=== PATIENT | male | born 1945 | race Caucasian/White ===

== ENCOUNTER 2018-06-01 14:12 | Inpatient (IN) | payer MEDICARE, OTHER ==
[~2018-06-01] VITALS: Ht 188 cm; Wt 154.0 kg
--- NOTE | 2018-06-01 14:35 | NUR ---
PER EMS REPORT, PT REPORTS RIGHT HAND NUMBNESS. PER EMS, ON SCENE PT HAD SPO2 READING 10-20 POINTS LOWER ON RIGHT HAND WITH RIGHT HAND COOLNESS NOTED. THESE ASSESSMENT FINDINGS WERE NOT NOTED BY THIS RN. EDMD OVIDIO NOTIFIED THAT PT HAS HX TIA AND HAS RIGHT HAND NUMBNESS STARTING APPROX 1 HR PRIOR TO ARRIVAL. PT HAS EQUAL MANGLE FEEDER STRENGTH BILATERALLY, NO DRIFT, EQUAL STRENGTH TO BILATERAL ARMS AND LEGS. FACE SYMMETRICAL, PUPILS EQUAL ROUND AND REACTIVE, TONGUE MIDLINE. PT A&O X 4. MD TO EXAMINE PT.
--- NOTE | 2018-06-01 14:41 | NUR ---
KARUNA. REPORT RECEIVED BY EMS. PT HAS RIGHT HAND NUMBNESS, TIGLING AND WEAKNESS ABOUT 1.5 HOUR AGO. PT AOX4. SPEECH CLEAR. NEURO INTACT. 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 PT HAS HX OF TIA AND PULMONARY HTN. PT USING 5-6L OXY AT HOME AND STATES HE HAS CHRONIC SOB WITH EXERTION, PT STATES, "IT'S BEEN GETTING WORSE." PT USING OXY MASK AT 12L/MIN AT THIS TIME. RESPS EVEN AND UNLABORED. ALL MONITORS IN PLACE. JOVANNI NOLAN AT BEDSIDE TO ASSESS.
--- NOTE | 2018-06-01 14:45 | NUR ---
CODE NEURO CALLED PER JOVANNI NOLAN.
[2018-06-01] MEDS ORDERED: TERA10CA3 PO (14:46)
--- NOTE | 2018-06-01 14:46 | NUR ---
CODE NEURO CALLED 1 MIN AGO.
--- NOTE | 2018-06-01 14:56 | NUR ---
PT TO CT , FSBS 122
[2018-06-01] MEDS ORDERED: SODIUM CHLORIDE FLUSH 10ML SYR IVF ONE (15:00)
--- NOTE | 2018-06-01 15:18 | NUR ---
PT BACK TO ROOM FROM CT.
--- NOTE | 2018-06-01 15:24 | NUR ---
NEURO CONSULT COMPLETE. AWAITING RECOMMENDATION AT THIS TIME.
[2018-06-01] MEDS ORDERED: OMNIPAQUE 350 MG/ML, 100ML BOTTLE ONE (15:26)
[2018-06-01] MEDS ORDERED: LEVO25TA4 PO (15:29)
[2018-06-01] MEDS ORDERED: METO25TA35 PO (15:29)
--- NOTE | 2018-06-01 15:39 | NUR ---
per EDMD Cast, neuro consult does not recommend TPA. Pt's spo2 91-91% on 12L oxymask. Resps 20-25. EDMD aware.
[2018-06-01 15:52] LABS: BASOPHILS # (AUTO) 0.04 x10^3/uL (0-0.1); BASOPHILS % (AUTO) 1 % (0-1); EOSINOPHILS # (AUTO) 0.01 x10^3/uL (0-0.4); EOSINOPHILS % (AUTO) 0 % (1-7); LYMPHOCYTES # (AUTO) 0.71 x10^3/uL (1-3.4); LYMPHOCYTES % (AUTO) 9 % (22-44); MD NO; MEAN CORPUSCULAR HEMOGLOBIN 29.6 pg (27.5-34.5); MEAN CORPUSCULAR VOLUME 89.8 fL (81-97); MEAN PLATELET VOLUME 8.4 fL (7.4-10.4); MONOCYTES # (AUTO) 0.48 x10^3/uL (0.2-0.8); MONOCYTES % (AUTO) 6 % (2-9); NEUTROPHILS % (AUTO) 84 % (42-75); PLATELET COUNT 206 x10^3/uL (130-400); RED BLOOD COUNT 4.26 x10^6/uL (4.38-5.82); RED CELL DISTRIBUTION WIDTH 14.3 % (9.4-14.8)
--- NOTE | 2018-06-01 15:58 | NUR ---
x-ray at bed side. dysphagia scleen complete. pt coughs after drinking water. will continue to monitor.
[2018-06-01 16:00] LABS: ALBUMIN 2.6 g/dL (3.4-5.0); ANION GAP 9 mmol/L (5-15); CALCIUM 8.7 mg/dL (8.5-10.1); CHLORIDE 105 mmol/L (98-107)
--- NOTE | 2018-06-01 16:03 | NUR ---
edmd notified about dysphagia scleen. npo maintained at ed at this time.
[2018-06-01 16:06] LABS: ALANINE AMINOTRANSFERASE 14 U/L (12-78); ALKALINE PHOSPHATASE 86 U/L (45-117); BILIRUBIN,TOTAL 1.1 mg/dL (0.2-1.0); CREATININE 1.49 mg/dL (0.7-1.3); TOTAL PROTEIN 6.8 g/dL (6.4-8.2)
[2018-06-01 16:11] LABS: TROPONIN I 0.539 ng/mL (0.000-0.045)
--- NOTE | 2018-06-01 16:15 | NUR ---
PT'S RESULTS DISCUSSED WITH MD NOLAN INCUDING TROPONIN LEVEL .539 AND PE'S NOTED ON CTA.
--- NOTE | 2018-06-01 16:34 | NUR ---
HOSPITALIST DINORAH AT BEDSIDE TO EVALUATE PT. PT A&OX 4, RESPS EVEN AND UNLABORED, DENIES PAIN. 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 MD COPELAND NOTIFIED PT FAILED SWALLOW EVAL. NPO STATUS MAINTAINED. PT TO RECEIVE HEPARIN GTT.
--- NOTE | 2018-06-01 16:40 | NUR ---
pharmacy paged to verify heparin gtt. this RN confirmed by MD Payne that pt is to receive NON-STROKE heparin protocol for PE.
[2018-06-01 16:59] LABS: INTERNATIONAL NORMALIZED RATIO 1.19 (0.93-1.1); PROTHROMBIN TIME 12.5 Seconds (9.6-11.5)
[2018-06-01] MEDS ORDERED: hydrALAzine 20 MG/ML, 1ML IVPush PRN (17:00)
[2018-06-01] MEDS ORDERED: LABETALOL 5MG/ML, 20ML IVPush PRN (17:00)
[2018-06-01] MEDS ORDERED: ONDANSETRON ODT 4 MG PO PRN (17:00)
[2018-06-01] MEDS ORDERED: BISACODYL 10 MG SUPP PR PRN (17:00)
[2018-06-01] MEDS ORDERED: morphine SULFATE 10 MG/ML, 1ML IVPush PRN (17:00)
[2018-06-01] MEDS ORDERED: ONDANSETRON 2MG/ML, 2ML IVPush PRN (17:00)
[2018-06-01] MEDS ORDERED: HEPARIN 5,000 UNITS/ML, 1ML IV ONE (17:00)
[2018-06-01] MEDS ORDERED: OXYcodone IR 5MG TABLET PO PRN (17:00)
[2018-06-01] MEDS ORDERED: OXYcodone/APAP 5/325MG TABLET PO PRN (17:00)
[2018-06-01] MEDS ORDERED: PROMETHAZINE 25 MG/ML, 1ML IM PRN (17:00)
--- NOTE | 2018-06-01 17:00 | NUR ---
US tech at BS for echo
--- NOTE | 2018-06-01 17:22 | NUR ---
PT RESTING IN RDERRY. PT AOX4. RESPS EVEN AND UNLABORED. DENIES ANY PAIN, NEEDS AND CONCERNS AT THIS TIME.
[2018-06-01] MEDS ORDERED: HEPARIN 5,000 UNITS/ML, 1ML ONE (17:24)
[2018-06-01] MEDS ORDERED: HEPARIN 25,000 UNITS/500ML PMX 500 ML ONE (17:24)
[2018-06-01 17:28] LABS: FREE T4 (FREE THYROXINE) 1.34 ng/dL (0.76-1.46); THYROID STIMULATING HORMONE 2.7 mIU/L (0.358-3.740)
[2018-06-01 17:34] LABS: HEMOGLOBIN A1C 5.3 % (4.2-6.3)
--- NOTE | 2018-06-01 17:40 | NUR ---
this RN paged pharmacy to notify heparin gtt was dosed off of estimated weight. pt is well above max weight on heparin protocol. pharmacist Starr shya RN to admin heparin at ordered dose based off of estimated weight.
[2018-06-01] MEDS: HEPARIN 25,000 UNITS/500ML PMX 500 ML IV PRN (17:43)
--- NOTE | 2018-06-01 17:45 | NUR ---
pt resting in [facility]. pt aox4. resps even and unlabored. all monitors in place. call light within reach. pt provided warm blanket at this time. pt medicated per emar. pt orlerated well. denies any pain and needs at this time.
--- NOTE | 2018-06-01 18:29 | NUR ---
sbar report called to receiving MIKE Cruz. Recieving RN aware of heparin gtt and rate. pt awaiting transport to [facility].
[2018-06-01 20:00] VITALS: BP 123/79
[2018-06-01 21:34] LABS: TROPONIN I 0.899 ng/mL (0.000-0.045)
[2018-06-01] MEDS ORDERED: OMEP40CA6 PO (22:22)
[2018-06-01 22:32] VITALS: BP 123/79
[2018-06-02] MEDS: HEPARIN 5,000 UNITS/ML, 1ML IV PRN ×3 (00:13→19:05)
[2018-06-02 00:29] VITALS: BP 129/74
[2018-06-02 03:08] LABS: BASOPHILS # (AUTO) 0.01 x10^3/uL (0-0.1); BASOPHILS % (AUTO) 0 % (0-1); EOSINOPHILS # (AUTO) 0.07 x10^3/uL (0-0.4); EOSINOPHILS % (AUTO) 1 % (1-7); LYMPHOCYTES # (AUTO) 1.51 x10^3/uL (1-3.4); LYMPHOCYTES % (AUTO) 21 % (22-44); MD NO; MEAN CORPUSCULAR HEMOGLOBIN 29.9 pg (27.5-34.5); MEAN CORPUSCULAR HGB CONC 33.9 g/dL (33.2-36.2); MEAN CORPUSCULAR VOLUME 88.3 fL (81-97); MEAN PLATELET VOLUME 8.4 fL (7.4-10.4); MONOCYTES % (AUTO) 7 % (2-9); NEUTROPHILS # (AUTO) 5.27 x10^3/uL (1.8-6.8); NEUTROPHILS % (AUTO) 72 % (42-75); PLATELET COUNT 199 x10^3/uL (130-400); RED BLOOD COUNT 4.07 x10^6/uL (4.38-5.82); RED CELL DISTRIBUTION WIDTH 13.9 % (9.4-14.8)
[2018-06-02 03:18] LABS: ALBUMIN 2.6 g/dL (3.4-5.0); ANION GAP 7 mmol/L (5-15); CHLORIDE 108 mmol/L (98-107)
[2018-06-02 03:24] LABS: ALANINE AMINOTRANSFERASE 15 U/L (12-78); ALKALINE PHOSPHATASE 86 U/L (45-117); CHOL/HDL RATIO 2.1; CHOLESTEROL, TOTAL 70 mg/dL (140-239); CREATININE 1.32 mg/dL (0.7-1.3); HDL CHOL % 49 % (26-37); HDL CHOLESTEROL (DIRECT) 34 mg/dL (40-60); LDL CHOLESTEROL,CALCULATED 16 mg/dL (54-169); LDL/HDL RATIO 0.5 (0.5-3.0); TOTAL PROTEIN 6.7 g/dL (6.4-8.2); TRIGLYCERIDES 98 mg/dL (50-200); TROPONIN I 0.939 ng/mL (0.000-0.045); VLDL CHOLESTEROL 20 mg/dL (0-25)
[2018-06-02 05:08] VITALS: BP 126/67
[2018-06-02] MEDS: METOPROLOL SUCCINATE 25 MG TAB.ER.24H PO SCH (05:09)
[2018-06-02 05:16] LABS: MICROSCOPIC INDICATED
[2018-06-02 05:25] LABS: CULTURE INDICATED? NO
[2018-06-02] MEDS: HEPARIN 25,000 UNITS/500ML PMX 500 ML IV PRN ×2 (07:26→23:12)
[2018-06-02 07:37] VITALS: BP 114/71
[2018-06-02] MEDS: LEVOTHYROXINE 25 MCG TABLET PO SCH (10:29)
[2018-06-02] MEDS: TERAZOSIN 5MG CAPSULE PO SCH (10:30)
[2018-06-02 15:35] VITALS: BP 127/79
[2018-06-02 19:36] VITALS: BP 122/76
[2018-06-03 01:22] LABS: BASOPHILS # (AUTO) 0.13 x10^3/uL (0-0.1); BASOPHILS % (AUTO) 2 % (0-1); EOSINOPHILS # (AUTO) 0.22 x10^3/uL (0-0.4); EOSINOPHILS % (AUTO) 4 % (1-7); LYMPHOCYTES # (AUTO) 1.54 x10^3/uL (1-3.4); LYMPHOCYTES % (AUTO) 26 % (22-44); MD NO; MEAN CORPUSCULAR HEMOGLOBIN 30.1 pg (27.5-34.5); MEAN CORPUSCULAR HGB CONC 33.5 g/dL (33.2-36.2); MEAN CORPUSCULAR VOLUME 89.9 fL (81-97); MEAN PLATELET VOLUME 8.4 fL (7.4-10.4); MONOCYTES # (AUTO) 0.43 x10^3/uL (0.2-0.8); MONOCYTES % (AUTO) 7 % (2-9); NEUTROPHILS # (AUTO) 3.66 x10^3/uL (1.8-6.8); NEUTROPHILS % (AUTO) 61 % (42-75); PLATELET COUNT 211 x10^3/uL (130-400); RED BLOOD COUNT 4.02 x10^6/uL (4.38-5.82); RED CELL DISTRIBUTION WIDTH 14.5 % (9.4-14.8)
[2018-06-03 01:33] LABS: ALBUMIN 2.4 g/dL (3.4-5.0); ANION GAP 7 mmol/L (5-15); CALCIUM 8.1 mg/dL (8.5-10.1); CHLORIDE 106 mmol/L (98-107)
[2018-06-03 01:36] LABS: ALANINE AMINOTRANSFERASE 19 U/L (12-78); ALKALINE PHOSPHATASE 87 U/L (45-117); CREATININE 1.41 mg/dL (0.7-1.3); TOTAL PROTEIN 6.2 g/dL (6.4-8.2)
[2018-06-03 03:29] VITALS: BP 104/80
[2018-06-03 05:58] VITALS: BP 147/80
[2018-06-03] MEDS: LEVOTHYROXINE 25 MCG TABLET PO SCH (06:00)
[2018-06-03] MEDS: METOPROLOL SUCCINATE 25 MG TAB.ER.24H PO SCH (06:01)
[2018-06-03] MEDS ORDERED: POTASSIUM CHLORIDE 20 MEQ TAB.ER.PRT PO ONE (08:00)
[2018-06-03 08:01] VITALS: BP 118/80
[2018-06-03 08:29] LABS: TROPONIN I 0.413 ng/mL (0.000-0.045)
[2018-06-03] MEDS: HEPARIN 5,000 UNITS/ML, 1ML IV PRN ×2 (09:49→16:23)
[2018-06-03] MEDS: DOCUSATE 100 MG CAPSULE PO PRN ×2 (09:49→20:00)
[2018-06-03] MEDS: TERAZOSIN 5MG CAPSULE PO SCH (09:50)
[2018-06-03] MEDS: HEPARIN 25,000 UNITS/500ML PMX 500 ML IV PRN (13:30)
[2018-06-03 16:25] VITALS: BP 134/85
[2018-06-03] MEDS ORDERED: PHARMACY MAY ADJ FOR RENAL FX MC PRN (17:00)
[2018-06-03] MEDS: APIXABAN 5 MG TABLET PO SCH (20:00)
[2018-06-03 20:53] VITALS: BP 118/75
[2018-06-04] MEDS: CALCIUM CARBONATE 500 MG TAB.CHEW PO PRN ×2 (01:00→09:15)
[2018-06-04 01:49] VITALS: BP 122/78
[2018-06-04] MEDS: LEVOTHYROXINE 25 MCG TABLET PO SCH (04:44)
[2018-06-04] MEDS: POLYETHYLENE GLYCOL 17 GM PACKET PO PRN (04:44)
[2018-06-04] MEDS: METOPROLOL SUCCINATE 25 MG TAB.ER.24H PO SCH (04:47)
[2018-06-04 05:00] VITALS: BP 119/76
[2018-06-04 06:01] LABS: BASOPHILS # (AUTO) 0.03 x10^3/uL (0-0.1); BASOPHILS % (AUTO) 1 % (0-1); EOSINOPHILS # (AUTO) 0.16 x10^3/uL (0-0.4); EOSINOPHILS % (AUTO) 3 % (1-7); LYMPHOCYTES % (AUTO) 25 % (22-44); MD NO; MEAN CORPUSCULAR HEMOGLOBIN 29.9 pg (27.5-34.5); MEAN CORPUSCULAR VOLUME 90.4 fL (81-97); MEAN PLATELET VOLUME 8.7 fL (7.4-10.4); MONOCYTES # (AUTO) 0.38 x10^3/uL (0.2-0.8); MONOCYTES % (AUTO) 7 % (2-9); NEUTROPHILS # (AUTO) 3.29 x10^3/uL (1.8-6.8); NEUTROPHILS % (AUTO) 64 % (42-75); PLATELET COUNT 213 x10^3/uL (130-400); RED BLOOD COUNT 3.97 x10^6/uL (4.38-5.82); RED CELL DISTRIBUTION WIDTH 14.1 % (9.4-14.8)
[2018-06-04 06:13] LABS: CHLORIDE 105 mmol/L (98-107)
[2018-06-04 06:24] LABS: ALANINE AMINOTRANSFERASE 18 U/L (12-78); ALBUMIN 2.4 g/dL (3.4-5.0); ALKALINE PHOSPHATASE 94 U/L (45-117); ANION GAP 8 mmol/L (5-15); BILIRUBIN,TOTAL 0.6 mg/dL (0.2-1.0); CALCIUM 8.2 mg/dL (8.5-10.1); CREATININE 1.12 mg/dL (0.7-1.3); TOTAL PROTEIN 6.6 g/dL (6.4-8.2)
[2018-06-04 07:29] VITALS: BP 119/76
[2018-06-04] MEDS: TERAZOSIN 5MG CAPSULE PO SCH (09:15)
[2018-06-04] MEDS: OMEPRAZOLE 20 MG CAPSULE.DR PO SCH (09:15)
[2018-06-04] MEDS: APIXABAN 5 MG TABLET PO SCH ×2 (09:16→20:33)
[2018-06-04 12:32] VITALS: BP 135/70
[2018-06-04 20:00] VITALS: BP 94/54
[2018-06-04 22:32] VITALS: BP 119/78
[2018-06-05 01:22] VITALS: BP 97/66
[2018-06-05 05:09] LABS: BASOPHILS # (AUTO) 0.03 x10^3/uL (0-0.1); BASOPHILS % (AUTO) 1 % (0-1); EOSINOPHILS # (AUTO) 0.14 x10^3/uL (0-0.4); EOSINOPHILS % (AUTO) 3 % (1-7); LYMPHOCYTES # (AUTO) 1.13 x10^3/uL (1-3.4); LYMPHOCYTES % (AUTO) 23 % (22-44); MD NO; MEAN CORPUSCULAR HEMOGLOBIN 29.9 pg (27.5-34.5); MEAN CORPUSCULAR HGB CONC 33.1 g/dL (33.2-36.2); MEAN CORPUSCULAR VOLUME 90.3 fL (81-97); MEAN PLATELET VOLUME 8.8 fL (7.4-10.4); MONOCYTES # (AUTO) 0.35 x10^3/uL (0.2-0.8); MONOCYTES % (AUTO) 7 % (2-9); NEUTROPHILS # (AUTO) 3.35 x10^3/uL (1.8-6.8); NEUTROPHILS % (AUTO) 67 % (42-75); PLATELET COUNT 216 x10^3/uL (130-400); RED BLOOD COUNT 3.74 x10^6/uL (4.38-5.82); RED CELL DISTRIBUTION WIDTH 14.1 % (9.4-14.8)
[2018-06-05 05:17] LABS: ALBUMIN 2.3 g/dL (3.4-5.0); ANION GAP 6 mmol/L (5-15); CALCIUM 7.9 mg/dL (8.5-10.1); CHLORIDE 105 mmol/L (98-107)
[2018-06-05 05:20] LABS: ALANINE AMINOTRANSFERASE 20 U/L (12-78); ALKALINE PHOSPHATASE 92 U/L (45-117); BILIRUBIN,TOTAL 0.6 mg/dL (0.2-1.0); CREATININE 1.17 mg/dL (0.7-1.3); TOTAL PROTEIN 6.4 g/dL (6.4-8.2)
[2018-06-05] MEDS: LEVOTHYROXINE 25 MCG TABLET PO SCH (05:33)
[2018-06-05] MEDS: OMEPRAZOLE 20 MG CAPSULE.DR PO SCH (05:34)
[2018-06-05] MEDS: METOPROLOL SUCCINATE 25 MG TAB.ER.24H PO SCH (05:34)
[2018-06-05 06:50] VITALS: BP 120/81
[2018-06-05] MEDS: TERAZOSIN 5MG CAPSULE PO SCH (09:22)
[2018-06-05] MEDS: APIXABAN 5 MG TABLET PO SCH ×2 (09:22→20:24)
[2018-06-05 14:12] VITALS: BP 123/77
[2018-06-05 19:20] VITALS: BP 119/74
[2018-06-06 01:06] VITALS: BP 121/73
[2018-06-06] MEDS: OMEPRAZOLE 20 MG CAPSULE.DR PO SCH (05:16)
[2018-06-06] MEDS: METOPROLOL SUCCINATE 25 MG TAB.ER.24H PO SCH (05:16)
[2018-06-06] MEDS: LEVOTHYROXINE 25 MCG TABLET PO SCH (05:16)
[2018-06-06 07:14] VITALS: BP 121/60
[2018-06-06 08:14] LABS: BASOPHILS % (AUTO) 0 % (0-1); EOSINOPHILS # (AUTO) 0.14 x10^3/uL (0-0.4); EOSINOPHILS % (AUTO) 3 % (1-7); LYMPHOCYTES # (AUTO) 0.89 x10^3/uL (1-3.4); LYMPHOCYTES % (AUTO) 16 % (22-44); MD NO; MEAN CORPUSCULAR HEMOGLOBIN 29.2 pg (27.5-34.5); MEAN CORPUSCULAR HGB CONC 32.5 g/dL (33.2-36.2); MONOCYTES # (AUTO) 0.39 x10^3/uL (0.2-0.8); MONOCYTES % (AUTO) 7 % (2-9); NEUTROPHILS # (AUTO) 4.16 x10^3/uL (1.8-6.8); NEUTROPHILS % (AUTO) 74 % (42-75); PLATELET COUNT 238 x10^3/uL (130-400); RED BLOOD COUNT 4.04 x10^6/uL (4.38-5.82)
[2018-06-06 08:23] LABS: ALANINE AMINOTRANSFERASE 22 U/L (12-78); ALBUMIN 2.5 g/dL (3.4-5.0); ANION GAP 4 mmol/L (5-15); CALCIUM 8.5 mg/dL (8.5-10.1); CHLORIDE 106 mmol/L (98-107)
[2018-06-06 08:25] LABS: ALKALINE PHOSPHATASE 108 U/L (45-117); BILIRUBIN,TOTAL 0.5 mg/dL (0.2-1.0); CREATININE 1.15 mg/dL (0.7-1.3); TOTAL PROTEIN 6.7 g/dL (6.4-8.2)
[2018-06-06] MEDS: POLYETHYLENE GLYCOL 17 GM PACKET PO PRN (09:12)
[2018-06-06] MEDS: TERAZOSIN 5MG CAPSULE PO SCH (09:12)
[2018-06-06] MEDS: APIXABAN 5 MG TABLET PO SCH ×2 (09:12→19:56)
[2018-06-06 20:00] VITALS: BP 139/79
[2018-06-07 02:00] VITALS: BP 122/68
[2018-06-07] MEDS: LEVOTHYROXINE 25 MCG TABLET PO SCH (05:30)
[2018-06-07] MEDS: METOPROLOL SUCCINATE 25 MG TAB.ER.24H PO SCH (05:30)
[2018-06-07] MEDS: OMEPRAZOLE 20 MG CAPSULE.DR PO SCH (05:30)
[2018-06-07 06:20] LABS: ALBUMIN 2.4 g/dL (3.4-5.0); ANION GAP 5 mmol/L (5-15); CALCIUM 8.5 mg/dL (8.5-10.1); CHLORIDE 105 mmol/L (98-107)
[2018-06-07 06:22] LABS: CREATININE 1.15 mg/dL (0.7-1.3)
[2018-06-07 06:49] LABS: BASOPHILS # (AUTO) 0.02 x10^3/uL (0-0.1); BASOPHILS % (AUTO) 0 % (0-1); EOSINOPHILS % (AUTO) 4 % (1-7); LYMPHOCYTES # (AUTO) 1.04 x10^3/uL (1-3.4); LYMPHOCYTES % (AUTO) 19 % (22-44); MD NO; MEAN CORPUSCULAR HGB CONC 33.4 g/dL (33.2-36.2); MEAN CORPUSCULAR VOLUME 89.8 fL (81-97); MEAN PLATELET VOLUME 8.9 fL (7.4-10.4); MONOCYTES # (AUTO) 0.38 x10^3/uL (0.2-0.8); MONOCYTES % (AUTO) 7 % (2-9); NEUTROPHILS # (AUTO) 3.87 x10^3/uL (1.8-6.8); NEUTROPHILS % (AUTO) 70 % (42-75); PLATELET COUNT 242 x10^3/uL (130-400); RED BLOOD COUNT 3.87 x10^6/uL (4.38-5.82); RED CELL DISTRIBUTION WIDTH 14.1 % (9.4-14.8)
[2018-06-07 07:31] VITALS: BP 143/73
[2018-06-07] MEDS: TERAZOSIN 5MG CAPSULE PO SCH (08:48)
[2018-06-07] MEDS: APIXABAN 5 MG TABLET PO SCH ×2 (08:49→21:49)
[2018-06-07 14:00] VITALS: BP 135/71
[2018-06-07 19:23] VITALS: BP 127/84
[2018-06-08 00:10] VITALS: BP 109/71
[2018-06-08] MEDS: POLYETHYLENE GLYCOL 17 GM PACKET PO PRN (00:10)
[2018-06-08 05:23] LABS: ALBUMIN 2.4 g/dL (3.4-5.0); ANION GAP 4 mmol/L (5-15); CALCIUM 7.9 mg/dL (8.5-10.1); CHLORIDE 104 mmol/L (98-107); CREATININE 1.04 mg/dL (0.7-1.3)
[2018-06-08 05:25] LABS: BASOPHILS # (AUTO) 0.03 x10^3/uL (0-0.1); BASOPHILS % (AUTO) 1 % (0-1); EOSINOPHILS # (AUTO) 0.21 x10^3/uL (0-0.4); EOSINOPHILS % (AUTO) 4 % (1-7); LYMPHOCYTES # (AUTO) 0.94 x10^3/uL (1-3.4); LYMPHOCYTES % (AUTO) 19 % (22-44); MD NO; MEAN CORPUSCULAR HEMOGLOBIN 29.4 pg (27.5-34.5); MEAN CORPUSCULAR HGB CONC 32.5 g/dL (33.2-36.2); MEAN CORPUSCULAR VOLUME 90.3 fL (81-97); MEAN PLATELET VOLUME 8.2 fL (7.4-10.4); MONOCYTES # (AUTO) 0.39 x10^3/uL (0.2-0.8); MONOCYTES % (AUTO) 8 % (2-9); NEUTROPHILS # (AUTO) 3.47 x10^3/uL (1.8-6.8); NEUTROPHILS % (AUTO) 69 % (42-75); PLATELET COUNT 244 x10^3/uL (130-400); RED CELL DISTRIBUTION WIDTH 14.1 % (9.4-14.8)
[2018-06-08] MEDS: LEVOTHYROXINE 25 MCG TABLET PO SCH (05:39)
[2018-06-08] MEDS: METOPROLOL SUCCINATE 25 MG TAB.ER.24H PO SCH (05:40)
[2018-06-08] MEDS: OMEPRAZOLE 20 MG CAPSULE.DR PO SCH (05:40)
[2018-06-08 07:27] VITALS: BP 116/74
[2018-06-08] MEDS: TERAZOSIN 5MG CAPSULE PO SCH (09:52)
[2018-06-08] MEDS: APIXABAN 5 MG TABLET PO SCH ×2 (09:52→20:45)
[2018-06-08] MEDS ORDERED: METO25TA91 PO (11:41)
[2018-06-08] MEDS ORDERED: APIX5TAB PO (11:41)
[2018-06-08] MEDS ORDERED: OMEP-110 PO (11:41)
[2018-06-08 12:11] VITALS: BP 124/74
[2018-06-08 19:33] VITALS: BP 116/74
[2018-06-08] MEDS: DIPHENHYDRAMINE 25 MG CAPSULE PO PRN (21:52)
[2018-06-09 02:00] VITALS: BP 134/80
[2018-06-09] MEDS: LEVOTHYROXINE 25 MCG TABLET PO SCH (05:50)
[2018-06-09] MEDS: OMEPRAZOLE 20 MG CAPSULE.DR PO SCH (05:53)
[2018-06-09] MEDS: METOPROLOL SUCCINATE 25 MG TAB.ER.24H PO SCH (05:53)
[2018-06-09 06:35] VITALS: BP 126/84
[2018-06-09] MEDS: APIXABAN 5 MG TABLET PO SCH ×2 (08:44→20:19)
[2018-06-09] MEDS: TERAZOSIN 5MG CAPSULE PO SCH (08:44)
[2018-06-09 13:32] VITALS: BP 124/73
[2018-06-09 19:04] VITALS: BP 118/72
[2018-06-10 01:05] VITALS: BP 128/73
[2018-06-10] MEDS: DIPHENHYDRAMINE 25 MG CAPSULE PO PRN (01:10)
[2018-06-10 02:34] VITALS: BP 128/72
[2018-06-10 03:40] VITALS: BP 134/77
[2018-06-10] MEDS ORDERED: GLUCAGON 1 MG IM PRN (05:00)
[2018-06-10] MEDS: LEVOTHYROXINE 25 MCG TABLET PO SCH (05:11)
[2018-06-10] MEDS: OMEPRAZOLE 20 MG CAPSULE.DR PO SCH (05:11)
[2018-06-10 05:53] LABS: BASOPHILS # (AUTO) 0.05 x10^3/uL (0-0.1); BASOPHILS % (AUTO) 1 % (0-1); EOSINOPHILS # (AUTO) 0.24 x10^3/uL (0-0.4); EOSINOPHILS % (AUTO) 4 % (1-7); LYMPHOCYTES # (AUTO) 1.29 x10^3/uL (1-3.4); LYMPHOCYTES % (AUTO) 21 % (22-44); MD NO; MEAN CORPUSCULAR HEMOGLOBIN 29.7 pg (27.5-34.5); MEAN CORPUSCULAR HGB CONC 33.1 g/dL (33.2-36.2); MEAN CORPUSCULAR VOLUME 89.8 fL (81-97); MEAN PLATELET VOLUME 8.4 fL (7.4-10.4); MONOCYTES # (AUTO) 0.42 x10^3/uL (0.2-0.8); MONOCYTES % (AUTO) 7 % (2-9); NEUTROPHILS # (AUTO) 4.25 x10^3/uL (1.8-6.8); NEUTROPHILS % (AUTO) 68 % (42-75); PLATELET COUNT 288 x10^3/uL (130-400); RED BLOOD COUNT 3.98 x10^6/uL (4.38-5.82); RED CELL DISTRIBUTION WIDTH 14.3 % (9.4-14.8)
[2018-06-10 05:58] LABS: CHLORIDE 104 mmol/L (98-107)
[2018-06-10 06:03] LABS: ALBUMIN 2.3 g/dL (3.4-5.0); ANION GAP 7 mmol/L (5-15); CALCIUM 8.6 mg/dL (8.5-10.1); CREATININE 0.89 mg/dL (0.7-1.3)
[2018-06-10 06:58] VITALS: BP 115/74
[2018-06-10] MEDS: TERAZOSIN 5MG CAPSULE PO SCH (09:08)
[2018-06-10] MEDS: APIXABAN 5 MG TABLET PO SCH ×2 (09:11→19:57)
[2018-06-10 12:40] VITALS: BP 117/71
[2018-06-10 20:49] VITALS: BP 137/72
[2018-06-11 01:39] VITALS: BP 140/75
[2018-06-11] MEDS: LEVOTHYROXINE 25 MCG TABLET PO SCH (05:27)
[2018-06-11] MEDS: OMEPRAZOLE 20 MG CAPSULE.DR PO SCH (05:27)
[2018-06-11 06:57] VITALS: BP 112/69
[2018-06-11] MEDS: APIXABAN 5 MG TABLET PO SCH ×2 (09:25→20:11)
[2018-06-11] MEDS: TERAZOSIN 5MG CAPSULE PO SCH (09:26)
[2018-06-11] MEDS: ACETAMINOPHEN 325 MG TABLET PO PRN ×2 (09:31→20:11)
[2018-06-11 12:38] VITALS: BP 115/81
[2018-06-11 18:58] VITALS: BP 124/76
[2018-06-12 02:00] VITALS: BP 135/78
[2018-06-12] MEDS: ACETAMINOPHEN 325 MG TABLET PO PRN ×3 (02:06→15:58)
[2018-06-12] MEDS: OMEPRAZOLE 20 MG CAPSULE.DR PO SCH (05:58)
[2018-06-12] MEDS: LEVOTHYROXINE 25 MCG TABLET PO SCH (05:58)
[2018-06-12 07:11] VITALS: BP 130/72
[2018-06-12] MEDS: APIXABAN 5 MG TABLET PO SCH ×2 (08:49→21:31)
[2018-06-12] MEDS: TERAZOSIN 5MG CAPSULE PO SCH (08:49)
[2018-06-12 13:39] VITALS: BP 138/78
[2018-06-12] MEDS ORDERED: methylPREDNISolone 4mg DOSE PACK PO SCH (17:00)
[2018-06-12] MEDS ORDERED: methylPREDNISolone 4mg DOSE PACK ONE (17:14)
[2018-06-12 20:00] VITALS: BP 136/76
[2018-06-13 01:31] VITALS: BP 101/73
[2018-06-13 04:54] LABS: MEAN CORPUSCULAR HEMOGLOBIN 29.5 pg (27.5-34.5); MEAN CORPUSCULAR HGB CONC 32.9 g/dL (33.2-36.2); MEAN CORPUSCULAR VOLUME 89.5 fL (81-97); MEAN PLATELET VOLUME 7.7 fL (7.4-10.4); PLATELET COUNT 322 x10^3/uL (130-400); RED BLOOD COUNT 4.32 x10^6/uL (4.38-5.82); RED CELL DISTRIBUTION WIDTH 13.6 % (9.4-14.8)
[2018-06-13 05:03] LABS: ANION GAP 3 mmol/L (5-15); CALCIUM 8.7 mg/dL (8.5-10.1); CHLORIDE 102 mmol/L (98-107)
[2018-06-13 05:07] LABS: BASOPHILS % (AUTO) 0 % (0-1); EOSINOPHILS % (AUTO) 0 % (1-7); LYMPHOCYTES # (AUTO) 0.33 x10^3/uL (1-3.4); LYMPHOCYTES % (AUTO) 4 % (22-44); MD SCAN; MONOCYTES # (AUTO) 0.04 x10^3/uL (0.2-0.8); MONOCYTES % (AUTO) 1 % (2-9); NEUTROPHILS # (AUTO) 7.66 x10^3/uL (1.8-6.8); NEUTROPHILS % (AUTO) 95 % (42-75)
[2018-06-13] MEDS: LEVOTHYROXINE 25 MCG TABLET PO SCH (05:36)
[2018-06-13] MEDS: OMEPRAZOLE 20 MG CAPSULE.DR PO SCH (05:36)
[2018-06-13 07:15] VITALS: BP 127/79
[2018-06-13] MEDS: TERAZOSIN 5MG CAPSULE PO SCH (07:57)
[2018-06-13] MEDS: APIXABAN 5 MG TABLET PO SCH ×2 (07:57→20:18)
[2018-06-13] MEDS: ACETAMINOPHEN 325 MG TABLET PO PRN ×2 (07:57→23:37)
[2018-06-13] MEDS ORDERED: METH4TAB2 PO (12:15)
[2018-06-13 12:32] VITALS: BP 101/66
[2018-06-13 19:00] VITALS: BP 118/71
[2018-06-14 02:23] VITALS: BP 131/74
[2018-06-14] MEDS: OMEPRAZOLE 20 MG CAPSULE.DR PO SCH (05:44)
[2018-06-14] MEDS: LEVOTHYROXINE 25 MCG TABLET PO SCH (05:44)
[2018-06-14 06:26] VITALS: BP 147/79
[2018-06-14] MEDS: ACETAMINOPHEN 325 MG TABLET PO PRN (06:34)
[2018-06-14] MEDS: TERAZOSIN 5MG CAPSULE PO SCH (09:29)
[2018-06-14] MEDS: APIXABAN 5 MG TABLET PO SCH ×2 (09:29→20:27)
[2018-06-14 12:40] VITALS: BP 132/75
[2018-06-14 19:27] VITALS: BP 146/76
[2018-06-15 00:25] VITALS: BP 128/73
[2018-06-15] MEDS: ACETAMINOPHEN 325 MG TABLET PO PRN (00:30)
[2018-06-15] MEDS: LEVOTHYROXINE 25 MCG TABLET PO SCH (06:21)
[2018-06-15] MEDS: OMEPRAZOLE 20 MG CAPSULE.DR PO SCH (06:22)
[2018-06-15 07:33] VITALS: BP 131/81
[2018-06-15] MEDS: TERAZOSIN 5MG CAPSULE PO SCH (08:57)
[2018-06-15] MEDS: APIXABAN 5 MG TABLET PO SCH (08:57)
[2018-06-15 12:52] VITALS: BP 118/73
== END 2018-06-15 15:33 | DRG 175 ==
LOC: ED 15:41 → EDIP 15:42 → ED 17:08 → 5SO 18:36 → 4WST 06-04 22:10 → 5SO 06-10 04:55
PROVIDERS: ADMIT Hospitalist; ATTEND Hospitalist
DX: I26.99 Other pulmonary embolism without acute cor pulmonale (principal); J96.21 Acute and chronic respiratory failure with hypoxia; E44.0 Moderate protein-calorie malnutrition; Z68.41 Body mass index [BMI] 40.0-44.9, adult; I31.3 Pericardial effusion (noninflammatory); G45.9 Transient cerebral ischemic attack, unspecified; Z88.8 Allergy status to other drugs, medicaments and biological substances; E03.9 Hypothyroidism, unspecified; E66.9 Obesity, unspecified; I27.20 Pulmonary hypertension, unspecified; I87.2 Venous insufficiency (chronic) (peripheral); I87.8 Other specified disorders of veins; M10.9 Gout, unspecified; N40.0 Benign prostatic hyperplasia without lower urinary tract symptoms; N50.89 Other specified disorders of the male genital organs; Z75.1 Person awaiting admission to adequate facility elsewhere; Z79.01 Long term (current) use of anticoagulants; Z90.49 Acquired absence of other specified parts of digestive tract; I51.9 Heart disease, unspecified; Z79.899 Other long term (current) drug therapy; R00.1 Bradycardia, unspecified
CPT/HCPCS: 36415; 70450; 70496; 70498; 71045; 80047; 80048; 80053; 80061; 81001; 82040; 82962; 83036; 83605; 83735; 84100; 84439; 84443; 84484; 84550; 85025; 85520; 85610; 85730; 87040; 90656; 93005; 93308; 93321; 93325; 93970; G0378; J1644; J7509; Q9967; Q0163

== ENCOUNTER 2018-07-10 08:42 | Emergency (ER) | payer MEDICARE ==
[~2018-07-10] VITALS: Ht 188 cm; Wt 154.4 kg
[~2018-07-10 08:42] MED LIST: APIX5TAB PO; LEVO25TA4 PO; METH4TAB2 PO; METO25TA35 PO; METO25TA91 PO; OMEP-110 PO; OMEP40CA6 PO; TERA10CA3 PO
[2018-07-10 09:29] LABS: BASOPHILS # (AUTO) 0.08 x10^3/uL (0-0.1); BASOPHILS % (AUTO) 1 % (0-1); EOSINOPHILS # (AUTO) 0.08 x10^3/uL (0-0.4); EOSINOPHILS % (AUTO) 1 % (1-7); LYMPHOCYTES # (AUTO) 1.21 x10^3/uL (1-3.4); LYMPHOCYTES % (AUTO) 19 % (22-44); MD NO; MEAN CORPUSCULAR HEMOGLOBIN 28.3 pg (27.5-34.5); MEAN CORPUSCULAR HGB CONC 32.5 g/dL (33.2-36.2); MEAN CORPUSCULAR VOLUME 87.1 fL (81-97); MEAN PLATELET VOLUME 7.4 fL (7.4-10.4); MONOCYTES # (AUTO) 0.34 x10^3/uL (0.2-0.8); MONOCYTES % (AUTO) 5 % (2-9); NEUTROPHILS # (AUTO) 4.81 x10^3/uL (1.8-6.8); NEUTROPHILS % (AUTO) 74 % (42-75); PLATELET COUNT 247 x10^3/uL (130-400); RED BLOOD COUNT 4.42 x10^6/uL (4.38-5.82); RED CELL DISTRIBUTION WIDTH 14.7 % (9.4-14.8)
[2018-07-10 09:41] LABS: ALANINE AMINOTRANSFERASE 26 U/L (12-78); ALBUMIN 2.4 g/dL (3.4-5.0); ANION GAP 4 mmol/L (5-15); CALCIUM 8.5 mg/dL (8.5-10.1); CHLORIDE 109 mmol/L (98-107); CREATININE 0.96 mg/dL (0.7-1.3)
[2018-07-10 09:43] LABS: INTERNATIONAL NORMALIZED RATIO 1.4 (0.93-1.1); PROTHROMBIN TIME 14.6 Seconds (9.6-11.5)
[2018-07-10 09:45] LABS: ALKALINE PHOSPHATASE 97 U/L (45-117); BILIRUBIN,TOTAL 0.4 mg/dL (0.2-1.0); TOTAL PROTEIN 6.3 g/dL (6.4-8.2); TROPONIN I 0.017 ng/mL (0.000-0.045)
[2018-07-10] MEDS ORDERED: OMNIPAQUE 350 MG/ML, 150 ML BOTTLE ONE (10:26)
--- NOTE | 2018-07-10 11:12 | NUR ---
Pt ambulates to restroom on 3L nasal cannula with steady gait and balance, SPO2% was between 85-91%. Pt states he felt more short of breath while ambulating.
--- NOTE | 2018-07-10 11:36 | NUR ---
LATE NOTE ENTRY FOR 0847: Pt brought in by EMS from [facility] with c/o shortness of breath. Pt wears 2-4 L oxygen via nasal cannula at home at all times. Pt had 20 g LAC PIV placed prior to arrival Pt has bilaterall pedal edema that the pt states, "is less than his normal." Pt states, "I have PEs. I have lost about 100 lbs in the last year with diet." Pt states, "I have been more short of breath when I get up and walk. It has been more than my normal." Pt ambulates with steady gait and balance. Pt denies chest pain, n/v/d, trauma, lightheadedness, or diaphoresis. All safety measures in place. Pt connected to all monitors and is on 3 L of oxygen via nasal cannula. Provided pt hospital gown and warm blankets for comfort measures.
[2018-07-10] MEDS ORDERED: WARF1TAB PO (12:16)
[2018-07-10 12:17] VITALS: BP 124/80
[2018-07-10] MEDS ORDERED: Metoprolol PO (12:19)
[2018-07-10] MEDS ORDERED: APIXABAN 5 MG TABLET PO ONE (12:30)
--- NOTE | 2018-07-10 13:00 | NUR ---
Pt ready to discharge home once friend brings home oxygen to ED for transportation.
--- NOTE | 2018-07-10 13:51 | NUR ---
Late note for 1345: Patient and Caregiver given discharge instructions and they have confirmed that they understand the instructions. Patient ambulatory with steady gait. Pt left with own home oxygen tank, all personal belongings, discharge paperwork, and all personal belongings.
== END 2018-07-10 13:54 | disposition home or self-care (01) ==
LOC: ED 09:06
DX: J96.11 Chronic respiratory failure with hypoxia (principal); I26.99 Other pulmonary embolism without acute cor pulmonale; Z86.73 Personal history of transient ischemic attack (TIA), and cerebral infarction without residual deficits
CPT/HCPCS: 36415; 71045; 71275; 80053; 83880; 84484; 85025; 85610; 85730; 93005; 99284; Q9967

== ENCOUNTER 2020-03-13 20:27 | Observation (INO) | payer MEDICARE ==
[~2020-03-13] VITALS: Ht 157.5 cm; Wt 194.5 kg
[~2020-03-13 20:27] MED LIST changes: +Metoprolol PO; +OMEP40CA42 PO; -OMEP40CA6 PO; +WARF1TAB2 PO
--- NOTE | 2020-03-13 20:54 | NUR ---
PT BIB [facility] FROM HOME AFTER WAKING UP FROM A NAP AND FEELING CONFUSED, STATES HE KNEW WHO HE WAS AND WHERE HE WAS BUT FELT CONFUSED. STATES HE WENT TO WATCH TV AND COULDNT REMEMBER HOW TO USE THE REMOTE. CALLED A FRIEND AND WAS TOLD TO CALL [facility]. PT WAS FOUND AT 200S/100S INITIALLY THEN DROPPED TO 130S/90S ENROUTE AFTER 250 NS. PT HAS HX OF PE AND TIA. PT ON ELIQUIS. PT HAS NO NOTED DEFICITS BY THIS RN, SUPERVISORY LIFEGUARD STRENGTHS EQUAL BILATERALLY. PERRLA, GROSS NEURO INTACT. WCCLARISA JUAREZ AT BS FOR EVAL AND POC. PT PALCED ON SPO2/BP/ECG MONITORING.
[2020-03-13] MEDS ORDERED: AMBIEN PO (21:03)
[2020-03-13] MEDS ORDERED: TAMS-11 PO (21:05)
[2020-03-13 21:15] LABS: BASOPHILS # (AUTO) 0.08 x10^3/uL (0-0.1); BASOPHILS % (AUTO) 1 % (0-1); EOSINOPHILS # (AUTO) 0.06 x10^3/uL (0-0.4); EOSINOPHILS % (AUTO) 1 % (1-7); LYMPHOCYTES # (AUTO) 1.38 x10^3/uL (1-3.4); LYMPHOCYTES % (AUTO) 22 % (22-44); MD NO; MEAN CORPUSCULAR HEMOGLOBIN 29.8 pg (27.5-34.5); MEAN CORPUSCULAR HGB CONC 33.2 g/dL (33.2-36.2); MEAN PLATELET VOLUME 7.8 fL (7.4-10.4); MONOCYTES # (AUTO) 0.33 x10^3/uL (0.2-0.8); MONOCYTES % (AUTO) 5 % (2-9); NEUTROPHILS # (AUTO) 4.53 x10^3/uL (1.8-6.8); NEUTROPHILS % (AUTO) 71 % (42-75); PLATELET COUNT 241 x10^3/uL (130-400); RED BLOOD COUNT 4.67 x10^6/uL (4.38-5.82); RED CELL DISTRIBUTION WIDTH 14.1 % (9.4-14.8)
[2020-03-13 21:25] LABS: ANION GAP 6 mmol/L (5-15); CALCIUM 8.5 mg/dL (8.5-10.1); CHLORIDE 109 mmol/L (98-107)
--- NOTE | 2020-03-13 21:30 | NUR ---
PT RESTING ON GUHAM, BACK FORM CT, NAD, DENIES ADDITIONAL NEEDS AT THIS TIME. FRIEND AT BS. WAITING FOR LABS/CT RESULTS. WCTM.
[2020-03-13 21:37] LABS: INTERNATIONAL NORMALIZED RATIO 1.04 (0.93-1.1); PROTHROMBIN TIME 10.7 Seconds (9.6-11.5)
--- NOTE | 2020-03-13 22:30 | NUR ---
LATE ENTRY D/T PT CARE: PT NAD, RESTING ON GURNEY, TO BE ADMITTED, NO CHANGE IN CONDITION, AMBULATED TO AND FROM RESTROOM WITH A SMOOTH AND STEADY GAIT. ANOx4, WCTM. WAITING FOR ADMIT BED
--- NOTE | 2020-03-13 23:13 | NUR ---
REPORT CALLED UP TO MAREN MCKEON, PT CARE TO BE TRANSFERRED UPON ARRIVAL TO THE FLOOR, NAD, DENIES ADDITIONAL NEEDS, NO CHANGE IN CONDITION, WCTM.
[2020-03-13 23:28] VITALS: BP 206/101
[2020-03-13] MEDS ORDERED: ACETAMINOPHEN 325 MG TABLET PO PRN (23:30)
[2020-03-13] MEDS ORDERED: DOCUSATE 100 MG CAPSULE PO PRN (23:30)
[2020-03-14] VITALS (11 sets, daily range): BP systolic 161–207; BP diastolic 78–104
[2020-03-14] MEDS: LABETALOL 5MG/ML, 20ML IVPush PRN ×2 (00:19→01:53)
[2020-03-14] MEDS ORDERED: APIXABAN 5 MG TABLET ONE (00:28)
[2020-03-14] MEDS: METOPROLOL MC SCH ×2 (00:30→08:30)
[2020-03-14] MEDS: APIXABAN 5 MG TABLET PO SCH ×2 (00:31→21:29)
[2020-03-14] MEDS: ENALAPRILAT 1.25 MG/ML, 2ML IVPush PRN ×2 (02:02→02:20)
[2020-03-14 04:21] LABS: CHOL/HDL RATIO 2.3; LDL/HDL RATIO 0.8 (0.5-3.0)
[2020-03-14] MEDS ORDERED: LISINOPRIL 10 MG TABLET PO SCH (09:00)
[2020-03-14] MEDS: TAMSULOSIN 0.4 MG CAP.ER.24H PO SCH (09:43)
[2020-03-14] MEDS: LABETALOL 100 MG TABLET PO SCH ×2 (09:44→18:45)
[2020-03-14] MEDS: ASPIRIN 81 MG TABLET CHEW PO/NG SCH (09:44)
[2020-03-14] MEDS ORDERED: METO25TA35 PO (09:46)
[2020-03-14] MEDS ORDERED: LEVO25TA4 PO (09:48)
[2020-03-14] MEDS ORDERED: LEVOTHYROXINE 25 MCG TABLET PO SCH (13:00)
[2020-03-14] MEDS: METOPROLOL TARTRATE 25 MG TAB PO SCH (16:37)
[2020-03-14] MEDS ORDERED: TEMAZEPAM 15 MG CAPSULE PO PRN (18:00)
[2020-03-14] MEDS ORDERED: ATORVASTATIN 40 MG TABLET PO SCH (21:00)
[2020-03-14] MEDS: LISINOPRIL 10 MG TABLET PO SCH (21:29)
[2020-03-15 01:10] VITALS: BP 167/95
[2020-03-15] MEDS ORDERED: LEVOTHYROXINE 50 MCG TABLET PO SCH (06:00)
[2020-03-15 06:56] VITALS: BP 175/85
[2020-03-15] MEDS: LABETALOL 100 MG TABLET PO SCH (09:05)
[2020-03-15] MEDS: ASPIRIN 81 MG TABLET CHEW PO/NG SCH (09:05)
[2020-03-15] MEDS: TAMSULOSIN 0.4 MG CAP.ER.24H PO SCH (09:05)
[2020-03-15] MEDS: APIXABAN 5 MG TABLET PO SCH (09:05)
[2020-03-15] MEDS: METOPROLOL TARTRATE 25 MG TAB PO SCH (10:20)
[2020-03-15] MEDS: LISINOPRIL 10 MG TABLET PO SCH (10:21)
[2020-03-15 12:27] VITALS: BP 185/99
[2020-03-16] MEDS ORDERED: APIXABAN 5 MG TABLET PO SCH (09:00)
== END 2020-03-15 14:37 | disposition left against medical advice (07) ==
LOC: ED 21:45 → EDIP 23:48 → 4WST 23:49
PROVIDERS: ADMIT Family Medicine; ATTEND Hospitalist
DX: G45.9 Transient cerebral ischemic attack, unspecified (principal); I16.0 Hypertensive urgency; I26.99 Other pulmonary embolism without acute cor pulmonale; E03.9 Hypothyroidism, unspecified; Z79.01 Long term (current) use of anticoagulants; Z79.899 Other long term (current) drug therapy
CPT/HCPCS: 36415; 70450; 71045; 80048; 80061; 84443; 85025; 85610; 92523; 93005; 93308; 93321; 93325; 93880; 96374; 96375; 96376; 97162; 99285; G0378